=== PATIENT | female | born 1965 | race Caucasian/White ===

== ENCOUNTER → 2016-07-18 | Emergency (ER) | payer MEDICAID ==
[~2016-07-18] VITALS: Ht 154.9 cm; Wt 56.2 kg
[~2016-07-18] MED LIST: BACTRIM DS TAB1 EAC1 ORAL; METROGEL60 GM TP; cefTRIAXone 1 GM in NS 55 ML IVPB ONE
[2016-07-18 09:22] LABS: BASOPHILS % (AUTO) 1.3 % (0.0-2.0); EOSINOPHILS % (AUTO) 2.4 % (0.0-3.0); LYMPHOCYTES % (AUTO) 26.8 % (20.0-45.0); MEAN CORPUSCULAR HEMOGLOBIN 30.1 PG (27.0-31.0); MEAN CORPUSCULAR HGB CONC 33.9 G/DL (32.0-36.0); MEAN CORPUSCULAR VOLUME 89 FL (80-99); MEAN PLATELET VOLUME 7.1 FL (6.5-10.1); MONOCYTES % (AUTO) 7.4 % (1.0-10.0); NEUTROPHILS % (AUTO) 62.2 % (45.0-75.0); PLATELET COUNT 235 K/UL (150-450); RED BLOOD COUNT 3.97 M/UL (4.20-5.40); RED CELL DISTRIBUTION WIDTH 12.4 % (11.6-14.8); WHITE BLOOD COUNT 8.8 K/UL (4.8-10.8)
[2016-07-18 09:30] LABS: APPEARANCE,URINE CLEAR; KETONES,URINE NEGATIVE (NEGATIVE); LEUKOCYTE ESTERASE ,URINE NEGATIVE (NEGATIVE); NITRITE,URINE NEGATIVE (NEGATIVE); PH,URINE 6 (4.5-8.0); PROTEIN,URINE NEGATIVE (NEGATIVE); UROBILINOGEN,URINE NORMAL MG/DL (0.0-1.0)
[2016-07-18 09:32] LABS: ALANINE AMINOTRANSFERASE 26 U/L (3-33); ALBUMIN/GLOBULIN RATIO 1.4 (1.0-2.7); ANION GAP 15 (5-15); ASPARTATE AMINO TRANSFERASE 28 U/L (5-40); CALCIUM 8.9 mg/dL (8.6-10.2); CARBON DIOXIDE 27 mEQ/L (20-30); CHLORIDE 97 mEQ/L (98-107); CREATININE 0.7 mg/dL (0.5-0.9); GLOMERULAR FILTRATION RATE > 60 mL/min (>60); HEMOLYSIS 1; POTASSIUM 3.5 mEQ/L (3.4-4.9); SODIUM 139 mEQ/L (135-145); TOTAL PROTEIN 7.2 g/dL (6.6-8.7)
[2016-07-18 09:52] LABS: RBC,URINE 20-30 /HPF (0 - 2); WBC,URINE 0-2 /HPF (0 - 2)
[2016-07-18 09:53] LABS: BACTERIA,URINE FEW /HPF; MUCUS,URINE FEW /LPF (NONE/OCC); SQUAMOUS EPITHELIAL CELL,UR FEW /LPF (NONE/OCC)
[2016-07-18 10:11] VITALS: BP 129/72
[2016-07-18 10:29] LABS: ERYTHROCYTE SEDIMENTATION RATE 39 MM/HR (0-20)
[2016-07-18 11:05] VITALS: BP 127/73
--- NOTE | 2016-07-19 14:45 | Emergency Room Report ---
History of Present Illness General Chief Complaint: Skin Rash/Abscess Source: Family Member Present Illness HPI Patient is a 51-year-old female presented after having increased right-sided cheek swelling. Patient recently finished a course of penicillin without improvement. Patient was advised to present emergency department for further evaluation. Patient denied any fever. She reported having itchiness to the right cheek area. She had not been vomiting. She had not been having any pain to the area. Allergies: Coded Allergies: No Known Allergies (Unverified , 07/18/16) Patient History Past Medical History: see triage record Last Menstrual Period: 07/18/16 Now: No Reviewed Nursing Documentation: PMH: Agreed, PSxH: Agreed Nursing Documentation-PMH Past Medical History: No Stated History Review of Systems All Other Systems: negative except mentioned in HPI Physical Exam Vital Signs Date Time Temp Pulse Resp B/P Pulse Ox O2 Delivery O2 Flow Rate FiO2 07/18/16 08:29 98.4 79 16 136/78 100 Room Air Sp02 EP Interpretation: reviewed, normal General Appearance: normal inspection, well appearing, no apparent distress, alert, GCS 15 Head: atraumatic ENT: normal ENT inspection, hearing grossly normal, normal voice Neck: normal inspection, full range of motion, supple, no bony tend Respiratory: normal inspection, lungs clear, normal breath sounds, no respiratory distress, no retraction, no wheezing Cardiovascular #1: regular rate, rhythm, no edema Gastrointestinal: normal inspection, normal bowel sounds, non tender, soft, no guarding, no hernia Genitourinary: no CVA tenderness Musculoskeletal: normal inspection, back normal, normal range of motion Neurologic: normal inspection, alert, oriented x3, responsive, scout sniper III-XII nml as tested, speech normal Psychiatric: normal inspection, judgement/insight normal, mood/affect normal Skin: other - right malar area rash with slight telangectasia Medical Decision Making Diagnostic Impression: Primary Impression: Cellulitis ER Course Patient presented for skin rash. Differential diagnosis included was not limited to cellulitis, abscess, contact dermatitis, rosacea among others.Because of complexity of patient's case laboratory testing and imaging studies were ordered. The patient was noted to have a normal white blood count was slightly elevated sedimentation rate. This appears to be consistent with an inflammatory area. This may be an early presentation of lupus. The patient was given prescription for oral antibiotics and topical. The rash is more consistent with rosacea. The patient is advised to follow up with primary care doctor in 1-2 days for further evaluation and further testing for autoimmune disease. Patient is advised to return if any worsening condition or if any changes in status that are concerning. Last Vital Signs Date Time Temp Pulse Resp B/P Pulse Ox O2 Delivery O2 Flow Rate FiO2 07/18/16 11:05 78 19 127/73 100 Room Air 07/18/16 10:11 98.2 Status: improved Disposition: HOME, SELF-CARE Condition: Stable Scripts Metronidazole (METROGEL) 60 Gm Gel..gram. 60 GM TP THREE TIMES A DAY, #30 GM Prov: Jose Johnson 07/18/16 Trimethoprim/Sulfamethoxazole 160/800* (BACTRIM DS TABLET*) 1 Each Tablet 1 TAB ORAL Q12H, #14 TAB 0 Refills Prov: Jose Johnson 07/18/16 Referrals: [facility]ERR[facility] (PCP) Patient Instructions: Cellulitis Jose Johnson Jul 19, 2016 14:45
== END | disposition home or self-care (01) ==
LOC: EMR 09:00
DX: L03.211 Cellulitis of face (principal)
CPT/HCPCS: 36415; 80053; 81001; 81025; 85025; 85651; 96360; 99284; J0696